=== PATIENT | female | born 1990 | race Caucasian/White ===

== ENCOUNTER → 2020-03-30 | Outpatient (CLI) | payer OTHER | END | disposition home or self-care (01) | LOC: US 03-25 12:30 | DX: Z34.91 Encounter for supervision of normal pregnancy, unspecified, first trimester (principal); Z3A.12 12 weeks gestation of pregnancy ==

== ENCOUNTER → 2020-08-24 | Outpatient (CLI) | payer OTHER | END | disposition home or self-care (01) | LOC: COVID19 11:41 | PROVIDERS: ATTEND Obstetrics & Gynecology | DX: O99.513 Diseases of the respiratory system complicating pregnancy, third trimester (principal); R05 Cough; Z20.822 Contact with and (suspected) exposure to COVID-19; Z3A.32 32 weeks gestation of pregnancy ==

== ENCOUNTER → 2020-09-30 | Outpatient (CLI) | payer OTHER | END | disposition home or self-care (01) | LOC: COVID19 15:32 | PROVIDERS: ATTEND Obstetrics & Gynecology | DX: Z11.52 Encounter for screening for COVID-19 (principal); Z3A.38 38 weeks gestation of pregnancy ==

== ENCOUNTER → 2020-11-17 | Outpatient (CLI) | payer OTHER | END | disposition home or self-care (01) | LOC: RAD 13:49 | PROVIDERS: ATTEND Chiropractor | DX: M41.86 Other forms of scoliosis, lumbar region (principal) ==